=== PATIENT | male | born 1985 | race Caucasian/White ===

== ENCOUNTER 2020-07-29 08:21 | Outpatient (REF) | payer OTHER, SELFPAY | END 2020-07-29 08:22 | disposition home or self-care (01) | LOC: HO.LAB 08:21 | PROVIDERS: Visit Provider Internal Medicine | DX: Z20.828 Contact with and (suspected) exposure to other viral communicable diseases (principal) | CPT/HCPCS: C9803; U0003 ==

== ENCOUNTER 2024-02-07 12:52 | Outpatient (AMB) | payer OTHER, SELFPAY ==
--- NOTE | 2024-02-07 13:03 | AM.OFFWIN_ITS ---
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 No fevers or chills No dysuria or penile discharge Review of Systems Const Details: See HPI Physical Exam Vital Signs: Last Vital Signs Temp 98.4 F 02/07/24 13:14 Pulse 80 02/07/24 13:14 BP 100/70 02/07/24 13:14 Pulse Ox 98 02/07/24 13:14 Oxygen Delivery Method Room Air 02/07/24 13:14 BMI result Body Mass Index 24.5 Const General: no acute distress and well developed Nutritional Appearance: well nourished Orientation/consciousness: patient oriented x3 HEENT Head: Yes normocephalic and Yes atraumatic Eyes General: appearance normal, both eyes and all related structures Pupils: Equal, round and reactive pupils present EOM: EOMs intact bilaterally Resp Effort & Inspection: normal respiratory effort Other: Erythematous rash on glans penis and foreskin Neuro General: patient oriented x3 and gait normal Cranial nerves: Yes Equal, round and reactive pupils present Psych Affect: normal affect Assessment & Plan Assessment & Plan (1) Penile rash: Code(s): R21 - Rash and other nonspecific skin eruption Plan: Penile rash on glands and foreskin. This appears more as a balanitis but patient says that it appeared more as blisters when it 1st began. Will give him clotrimazole Checking HSV and will give him a script for valacyclovir. He can try valacyclovir if HSV is positive or not improving with clotrimazole Plan Penile rash. Appears most likely balanitis. However patient notes that initial onset looked more like blisters. Recent sexual activity. Balanitis verses HSV infection Start clotrimazole cream. If HSV positive or if not improving with clotrimazole, will start valacyclovir. Discuss with sexual partner. Avoid unprotected sexual activity until resolved. Orders: Orders Herpes Simplex Virus Ab IgG Today R21 - Rash and other nonspecific skin eruption Medications: New clotrimazole 1% 1 appl topical BID 2 weeks 30 grams 1RF valacyclovir 500 mg PO Q12H 14 days 28 tabs 0RF Coding Level of Care Code Est Pt Level 3 (03537) Diagnoses Penile rash R21
[2024-02-07 13:14] VITALS: BP 100/70; PULSE 80; TEMP 36.9; O2SAT 98; BMI 24.5
== END 2024-02-07 14:06 | disposition home or self-care (01) ==
PROVIDERS: Visit Provider Family Medicine
DX: R21 Rash and other nonspecific skin eruption (principal)
CPT/HCPCS: 99051; 99213

== ENCOUNTER 2024-02-07 13:46 | Outpatient (REF) | payer OTHER, SELFPAY ==
[2024-02-10 09:23] LABS: Herpes Simplex Type 2 IgG 7.44 index
== END 2024-02-07 13:47 | disposition home or self-care (01) ==
LOC: HO.HMGCLDS 13:46
PROVIDERS: Visit Provider Family Medicine
DX: R21 Rash and other nonspecific skin eruption (principal)
CPT/HCPCS: 36415; 86695; 86696